=== PATIENT | female | born 1965 | race Caucasian/White ===

== ENCOUNTER → 2022-11-14 11:00 | Outpatient (BNVA) | payer OTHER, SELFPAY | PROVIDERS: PCP Internal Medicine; Visit Provider Nurse Practitioner Family ==

== ENCOUNTER 2022-12-18 13:23 | Inpatient (IN) | payer OTHER, SELFPAY ==
--- NOTE | ~2022-12-18 | CT_ITS ---
EXAMINATION: CT ABDOMEN AND PELVIS WITH CONTRAST CLINICAL INFORMATION: Cardiac silhouette yesterday with a red abbey on upper abdomen COMPARISON: Chest radiograph earlier today, MR lumbar spine 10/03/2021 TECHNIQUE: Multidetector volumetric images were obtained from the superior aspect of the liver through the pubic symphysis following administration 85 mL of Omnipaque 350 intravenous contrast. Sagittal and coronal reformatted images were obtained on the technologist's workstation. Oral contrast: No This CT examination was performed using dose optimization techniques as appropriate, variously including the following: *Automated exposure control *Adjustment of mA and/or kV according to patient size (this includes techniques or standardized protocols for targeted exams where dose is matched to indication/reason for exam; i.e. extremities or head) *Use of iterative reconstruction technique DLP: 1006 mGy-cm FINDINGS: LUNG BASES: Bibasilar atelectasis is present. The visualized lung bases are otherwise unremarkable. No rib fractures are seen. LIVER, GALLBLADDER, AND BILIARY TREE: The liver is mildly enlarged with decreased attenuation suggesting hepatic steatosis. No focal hepatic lesion or biliary ductal dilatation is present. The gallbladder is distended but otherwise unremarkable with no evidence of radiopaque gallstones, gallbladder wall thickening, or obvious pericholecystic inflammatory changes. PANCREAS: Unremarkable. SPLEEN: Unremarkable. ADRENAL GLANDS: Unremarkable. KIDNEYS AND URETERS: The kidneys are normal in size, shape, and attenuation. No hydronephrosis, hydroureter, or calculi seen. No perinephric stranding. BLADDER: Very distended up to the level of the umbilicus. GASTROINTESTINAL TRACT: The small and large bowel are unremarkable aside from a few scattered colonic diverticula without diverticulitis. The appendix is unremarkable. ABDOMINAL WALL: There are 2 periumbilical hernias present which contain only fat. LYMPH NODES: No retroperitoneal lymphadenopathy. VASCULAR: Unremarkable. PELVIC VISCERA: Unremarkable. OSSEOUS STRUCTURES: There is been posterior fixation with pedicular screws at L4-L5. There is grade 1 anterolisthesis of L4 upon L5. Marked degenerative changes are seen in the lower thoracic spine most marked at T9-T10. No acute traumatic fractures are seen. CT/CT abdomen pelvis w IV con IMPRESSION: 1. No evidence of an acute traumatic injury in the lower chest, abdomen or pelvis. 2. Incidental note made of mildly enlarged fatty liver, distended bladder and periumbilical hernias containing only fat. 3. Degenerative changes in the spine with grade 1 anterolisthesis of L4 upon L5 and posterior fixation L4-L5. Fleischner guidelines were followed.
--- NOTE | ~2022-12-18 | XR_ITS ---
EXAMINATION: XR CHEST CLINICAL INFORMATION: Overdose COMPARISON: May 2022. TECHNIQUE: Frontal apical lordotic projection and lateral view performed. FINDINGS: No distinct airspace consolidation or vascular congestion. There are numerous opacities superimposing the left upper chest which may be extraneous to the patient. Clinical correlation recommended. No distinct pleural effusions seen. Postsurgical changes noted at the cervical region. Trilevel thoracic spondylosis and degenerative disc space narrowing. XR/XR chest 2V IMPRESSION: No definite evidence for acute process; numerous opacities superimposing the upper left chest may be extraneous to the patient.
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
[2022-12-18 13:47] VITALS: BP 174/113; BP 181/115; PULSE 94; RESP 16; O2SAT 91; O2SAT 92; BMI 45.0
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
--- NOTE | 2022-12-18 14:13 | ECG_ITS ---
Test Reason : overdose Blood Pressure : / mmHG Vent. Rate : 089 BPM Atrial Rate : 089 BPM P-R Int : 170 ms QRS Dur : 084 ms QT Int : 390 ms P-R-T Axes : 033 -08 057 degrees QTc Int : 474 ms Normal sinus rhythm Moderate voltage criteria for LVH, may be normal variant ( R in aVL , Wilian product ) Nonspecific ST and T wave abnormality Prolonged QT Abnormal ECG No previous ECGs available Referred By: Elgin Cowan Electronically Signed By:COREY ORR MD
[2022-12-18] MEDS: 0.9 % Sodium Chloride 1,000 ML 999 ML IV ×4 (14:52→20:30)
[2022-12-18 14:59] LABS: MANUAL DIFF FLAG NO
[2022-12-18 15:01] LABS: Basophils Absolute Auto 0.1 X10*3/uL (0.0-0.2); Basophils Percent Auto 0.3 % (0-2); Eosinophils Percent Auto 0.1 % (0-4); Hematocrit 43.5 % (37.0-47.0); Hemoglobin 13.7 g/dl (12.0-16.0); Imm Gran Pct Auto 0.6 % (0.0-0.4); Lymphocytes Absolute Auto 1.2 X10*3/uL (1.2-4.9); Lymphocytes Percent Auto 6.7 % (20-40); Mean Corpuscular HGB Conc 31.5 g/dl (31.0-35.0); Mean Corpuscular Hemoglobin 26.4 pg (27.0-33.0); Mean Corpuscular Volume 83.8 fL (80.0-98.0); Mean Platelet Volume 9.3 fL (9.4-12.3); Monocytes Absolute Auto 1.1 X10*3/uL (0.1-1.2); Monocytes Percent Auto 6.4 % (2-11); Neutrophils Absolute Auto 15.1 x10*3/uL (2.0-8.3); Neutrophils Percent Auto 85.9 % (45-73); Platelet Count 346 X10*3/uL (160-400); Red Blood Count 5.19 X10*6/uL (4.20-5.50); Red Cell Distribution Width 14.9 % (11.0-16.0); White Blood Count 17.5 X10*3/uL (4.8-10.8)
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
[2022-12-18 15:15] LABS: IDNOW Serial# 9DB6401D
[2022-12-18 15:16] LABS: COVID-19 Test Negative (Negative)
[2022-12-18 15:17] LABS: Alanine Aminotransferase 117 U/L (0-31); Albumin Level 4.5 g/dL (3.5-5.0); Alkaline Phosphatase 219 U/L (39-117); Anion Gap 18 (12-20); Aspartate Amino Transferase 188 U/L (5-31); Bilirubin Direct 0.2 mg/dL (0.0-0.5); Bilirubin Total 0.6 mg/dL (0.0-1.0); Blood Urea Nitrogen 14 mg/dL (9-16); Calcium 10.5 mg/dL (8.4-10.2); Carbon Dioxide 32 mmol/L (22-29); Chloride 92 mmol/L (96-108); Creatinine Clr Calc Pharmacy 43.2; Estimated Glomerular Filt Rate 37; Glucose Random 117 mg/dL (60-115); Lipase 39 U/L (8-78); Potassium 3.5 mmol/L (3.3-5.1); Sodium 138 mmol/L (135-145); Total Protein 7.9 g/dL (6.5-8.0)
[2022-12-18 15:18] LABS: Lactic Acid 4.1 mmol/L (0.5-2.0)
[2022-12-18 16:00] VITALS: BP 202/116; PULSE 90; RESP 20; O2SAT 95
--- NOTE | 2022-12-18 16:16 | PHA.MEDREC ---
Pharmacy Consult ? Medication Reconciliation Pharmacy has completed the medication reconciliation. Spoke to patient to confirm meds.
--- NOTE | 2022-12-18 16:39 | PC.NURSE ---
pt is very difficult stick, two techs have attempted to draw blood cultures. awaiting BC draw before hanging ABX
[2022-12-18 17:00] LABS: Reflex Lactate? Lactic Acid Added
[2022-12-18] MEDS: Piperacillin Sodium/Tazobactam 4.5 GM in 0.9 % Sodium Chloride 100 ML IV (17:02)
[2022-12-18 17:25] LABS: Lactic Acid 3.1 mmol/L (0.5-2.0)
[2022-12-18] MEDS: iohexoL 350 MG/ML 100 ML INFUS..BTL IV (17:34)
[2022-12-18 17:37] VITALS: BP 201/109
[2022-12-18] MEDS: vancomycin/NS 2,000 MG/500 ML PLAST..BAG 250 MG IV (17:39)
[2022-12-18] MEDS: Ketorolac Tromethamine 15 MG/ML VIAL IVPUSH (17:42)
[2022-12-18 18:28] LABS: Appearance Urine Clear; Color Urine Yellow; Glucose Urine UA Negative (Negative); Leukocyte Esterase Urine Trace (Negative); Nitrite Urine Negative (Negative); PH 6.5 (5.0-9.0); UMIC TRIGGER UACC YES; Urine Blood Small (1+) (Negative); Urine Ketones Negative (Negative); Urine Protein 30 (1+) mg/dL (Neg-Trace)
[2022-12-18 18:39] LABS: Bacteria Urine 2+ (None Seen); Squamous Epithelial Cell Urine 0-2 /HPF (0-2); WBC Urine 0-5 /HPF (0-5)
[2022-12-18 18:40] LABS: Amphetamine Screen Urine Not Detected (Not Detect); Barbiturates, Urine POSITIVE (Not Detect); Benzodiazepines Screen Urine POSITIVE (Not Detect); Cannabinoid Screen Urine Not Detected (Not Detect); Cocaine Screen Urine Not Detected (Not Detect); Fentanyl, urine Not Detected (Not Detect); Opiate Screen Urine POSITIVE (Not Detect); Phencyclidine Screen Urine Not Detected (Not Detect)
[2022-12-18 19:03] LABS: Reflex Lactate? Lactic Acid Added
--- NOTE | 2022-12-18 20:30 | PC.NURSE ---
Hung fluid for pt, notified GIOVANY Mitchell
--- NOTE | 2022-12-18 20:39 | MHC.RECOVSUP ---
? Reason for consult:OPI o? Current location:[facility]? o? Identified substance use concern:? -? Overdose ? Intervention: o? Community resources provided ? Plan:PT being admitted ? Additional information: provided this pt with recovery resources as she is being admitted, also provided this pt with business card/ contact information.
[2022-12-18 20:50] LABS: MANUAL DIFF FLAG NO
[2022-12-18 20:51] LABS: Basophils Percent Auto 0.2 % (0-2); Eosinophils Percent Auto 0.1 % (0-4); Hematocrit 37.6 % (37.0-47.0); Hemoglobin 11.9 g/dl (12.0-16.0); Imm Gran Abs Auto 0.07 X10*3/uL (0.00-0.03); Imm Gran Pct Auto 0.5 % (0.0-0.4); Lymphocytes Absolute Auto 1.2 X10*3/uL (1.2-4.9); Lymphocytes Percent Auto 8.1 % (20-40); Mean Corpuscular HGB Conc 31.6 g/dl (31.0-35.0); Mean Corpuscular Hemoglobin 26.4 pg (27.0-33.0); Mean Corpuscular Volume 83.4 fL (80.0-98.0); Mean Platelet Volume 9.6 fL (9.4-12.3); Monocytes Absolute Auto 0.7 X10*3/uL (0.1-1.2); Monocytes Percent Auto 4.2 % (2-11); Neutrophils Absolute Auto 13.3 x10*3/uL (2.0-8.3); Neutrophils Percent Auto 86.9 % (45-73); Platelet Count 326 X10*3/uL (160-400); Red Blood Count 4.51 X10*6/uL (4.20-5.50); White Blood Count 15.3 X10*3/uL (4.8-10.8)
[2022-12-18 21:07] LABS: Alanine Aminotransferase 90 U/L (0-31); Albumin Level 3.8 g/dL (3.5-5.0); Alkaline Phosphatase 178 U/L (39-117); Anion Gap 19 (12-20); Aspartate Amino Transferase 118 U/L (5-31); Bilirubin Direct 0.2 mg/dL (0.0-0.5); Bilirubin Total 0.5 mg/dL (0.0-1.0); Blood Urea Nitrogen 11 mg/dL (9-16); Calcium 8.7 mg/dL (8.4-10.2); Carbon Dioxide 26 mmol/L (22-29); Chloride 98 mmol/L (96-108); Creatinine Clr Calc Pharmacy 56.8; Estimated Glomerular Filt Rate 51; Glucose Random 122 mg/dL (60-115); Potassium 3.7 mmol/L (3.3-5.1); Sodium 139 mmol/L (135-145); Total Protein 6.9 g/dL (6.5-8.0)
[2022-12-18 21:11] LABS: ~Lactic Acid-LAB USE ONLY 3.2 mmol/L (0.5-2.0)
--- NOTE | 2022-12-18 21:15 | PC.NURSE ---
dr Cowan aware of lactic acid 3.2
[2022-12-18 21:52] VITALS: BP 102/61; PULSE 78; RESP 16; TEMP 37; O2SAT 95
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
[2022-12-18 22:41] LABS: Reflex Lactate? 2 Y
[2022-12-18 23:12] VITALS: BP 107/69; PULSE 67; RESP 17; TEMP 38; O2SAT 96
[2022-12-18] MEDS: cefTRIAXone sodium 1 GM in 0.9 % Sodium Chloride 50 ML IV (23:32)
[2022-12-18] MEDS: Enoxaparin Sodium 40 MG/0.4 ML SYRINGE SUBCUT (23:33)
[2022-12-18 23:43] LABS: ~Lactic Acid-LAB USE ONLY 1.9 mmol/L (0.5-2.0)
[2022-12-18 23:47] VITALS: O2SAT 96
[2022-12-18 23:51] LABS: ABG Base Excess 5.9 mmol/L; ABG HCO3 31 mmol/L (22-26); ABG pCO2 51 mmHg (32-45); ABG pH 7.39 (7.35-7.45); ABG pO2 73 mmHg (83-108)
[2022-12-19] MEDS: Lactated Ringers 1,000 ML 100 ML IVCONT ×2 (00:03→10:53)
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
--- NOTE | 2022-12-19 05:10 | PC.NURSE ---
Pt sleeping at the bedside in no apparent distress. Breaths are even regular and unlabored with equal chest rises. Pending bed assignment. Will continue to monitor.
[2022-12-19 05:18] LABS: MANUAL DIFF FLAG NO
[2022-12-19 05:20] LABS: Basophils Percent Auto 0.2 % (0-2); Eosinophils Percent Auto 0.3 % (0-4); Hematocrit 34.3 % (37.0-47.0); Imm Gran Abs Auto 0.04 X10*3/uL (0.00-0.03); Imm Gran Pct Auto 0.3 % (0.0-0.4); Lymphocytes Absolute Auto 2.5 X10*3/uL (1.2-4.9); Lymphocytes Percent Auto 18.4 % (20-40); Mean Corpuscular HGB Conc 32.1 g/dl (31.0-35.0); Mean Corpuscular Hemoglobin 26.3 pg (27.0-33.0); Mean Corpuscular Volume 81.9 fL (80.0-98.0); Mean Platelet Volume 9.5 fL (9.4-12.3); Monocytes Percent Auto 7.8 % (2-11); Neutrophils Absolute Auto 9.8 x10*3/uL (2.0-8.3); Platelet Count 300 X10*3/uL (160-400); Red Blood Count 4.19 X10*6/uL (4.20-5.50); Red Cell Distribution Width 15.1 % (11.0-16.0); White Blood Count 13.4 X10*3/uL (4.8-10.8)
[2022-12-19 06:08] VITALS: BMI 44.5
[2022-12-19 06:15] LABS: Alanine Aminotransferase 69 U/L (0-31); Albumin Level 3.5 g/dL (3.5-5.0); Alkaline Phosphatase 149 U/L (39-117); Anion Gap 15 (12-20); Aspartate Amino Transferase 74 U/L (5-31); Bilirubin Direct 0.1 mg/dL (0.0-0.5); Bilirubin Total 0.4 mg/dL (0.0-1.0); Blood Urea Nitrogen 9 mg/dL (9-16); Calcium 9.2 mg/dL (8.4-10.2); Carbon Dioxide 26 mmol/L (22-29); Chloride 102 mmol/L (96-108); Creatinine Clr Calc Pharmacy 73.3; Estimated Glomerular Filt Rate > 60; Glucose Random 108 mg/dL (60-115); Potassium 3.3 mmol/L (3.3-5.1); Sodium 140 mmol/L (135-145); Total Protein 6.2 g/dL (6.5-8.0)
[2022-12-19 07:01] LABS: ABG Refer to POC result
[2022-12-19 07:44] VITALS: BP 131/82; PULSE 75; RESP 16; TEMP 36.5; O2SAT 95
[2022-12-19 08:00] VITALS: BP 162/93; PULSE 83; RESP 20; TEMP 36.3; O2SAT 95
--- NOTE | 2022-12-19 09:06 | MHC.CM.PN ---
KIRSTY 12/19, DCP: HOME NO SERVICES, [employer]AM HAS PROVIDED OUTPT RESOURCES, FOR TRANSPORT.
--- NOTE | 2022-12-19 09:08 | MHC.CM.PN ---
Addendum entered by Ketty Grady RN 12/19/22 10:31: PER HOSPITALIST PT WILL NEED TO BE CLEARED BY N CRISIS, IF CLEARED FOR HOME PT MAY D/C LATER TODAY. Original Note: KIRSTY 12/19/22, EMR REVIEWED, CM MET W/PT WHO REPORTS SHE LIVES W/, IS INDEPENDENT W/ALL CARE, DENIES USE OF DME/HOME SERVICES, PT REPORTS SHE DOES NOT HAVE A PSYCHIATRIST/THERAPIST AND HER PCP ORDERS ALL OF HER MEDICATIONS, RECOVERY TEAM HAS MET W/PT AND PROVIDED HER W/OUTPT RESOURCES, PT VERIFIES PCP IS JOSSELINE LOO VACC X1 HOWEVER DOES NOT RECALL WHICH TYPE AND HCP VERIFIED AAS ORLY AND COPY ON FILE. DCP: HOME NO SERVICES, [employer] TEAM HAS PROVIDED OUTPT RESOURCES, FOR TRANSPORT.
[2022-12-19 11:54] VITALS: BP 157/99; PULSE 89; RESP 20; TEMP 36.4; O2SAT 96
--- NOTE | 2022-12-19 14:48 | HO.SUDE ---
Met with pt in 487 after pt admitted to [facility] after accidental overdose. Pt laying in bed, awake, alert, restless, engages in conversation. Pt reports memory issues and at times has difficulty answering questions and finding words. Pt reports having been prescribed opioids on and off since 2015 for neck, back, knee pain. Pt reports recently restarting and needing knee surgery. Pt reports she is disabled and her helps with her medications. Pt reports yesterday was not home and pt accidentally took morphine believing it to be her thyroid medication. Pt reports this was first overdose and unintentional. Pt reports Narcan is in the home due to having opioids in the home. Pt denies using illicit pain medication. Pt educated on risks of overdose. Denies questions or concerns for t/w. Discussed with Kylie Seymour APRN.
[2022-12-19 15:13] VITALS: BP 192/96; PULSE 90; RESP 18; TEMP 36; O2SAT 97
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
[2022-12-19] MEDS: amLODIPine Besylate 5 MG TABLET PO (18:14)
[2022-12-19] MEDS: Triamterene/HCTZ 37.5/25 TABLET 1 TAB PO (18:14)
[2022-12-19 19:09] VITALS: BP 153/94
== END 2022-12-19 18:50 | disposition home or self-care (01) | DRG 812 ==
LOC: HO.ED 15:39 → HO.EDOVER 22:15 → HO.IMC 12-19 07:24
PROVIDERS: Physician Assistant; Admitting Provider Internal Medicine; Emergency Provider Student in an Organized Health Care Education/Training Program; PCP Internal Medicine; Visit Provider Internal Medicine
DX: T40.2X1A Poisoning by other opioids, accidental (unintentional), initial encounter (principal); N17.9 Acute kidney failure, unspecified; E87.20 Acidosis, unspecified; N39.0 Urinary tract infection, site not specified; E86.0 Dehydration; E03.9 Hypothyroidism, unspecified; G47.33 Obstructive sleep apnea (adult) (pediatric); Z79.51 Long term (current) use of inhaled steroids; Z79.890 Hormone replacement therapy; Z79.899 Other long term (current) drug therapy
CPT/HCPCS: 36415; 36600; 70450; 71046; 74177; 80048; 80053; 80076; 80307; 81001; 82248; 82803; 83605; 83690; 85025; 87040; 87635; 93005; 99285; J0696; J1650; J1885; J2543; J3370; Q9967

== ENCOUNTER → 2022-12-18 14:13 | Outpatient (BNV) | payer OTHER, SELFPAY | PROVIDERS: Admitting Provider Internal Medicine; Emergency Provider Student in an Organized Health Care Education/Training Program; PCP Internal Medicine; Visit Provider Internal Medicine Cardiovascular Disease | DX: I45.81 Long QT syndrome (principal) | CPT/HCPCS: 93010 ==

== ENCOUNTER → 2022-12-18 22:06 | Outpatient (BNV) | payer OTHER, SELFPAY | PROVIDERS: Admitting Provider Internal Medicine; Emergency Provider Student in an Organized Health Care Education/Training Program; PCP Internal Medicine; Visit Provider Internal Medicine | DX: E87.20 Acidosis, unspecified (principal); T50.901A Poisoning by unspecified drugs, medicaments and biological substances, accidental (unintentional), initial encounter; N39.0 Urinary tract infection, site not specified; R74.01 Elevation of levels of liver transaminase levels | CPT/HCPCS: 99222; 99236; 99239 ==

== ENCOUNTER 2023-01-28 15:11 | Outpatient (AMB) | payer OTHER, SELFPAY ==
--- NOTE | 2023-01-28 15:13 | A.OFFVIS_ITS ---
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 The patient is a 57 year old female who presents for preoperative evaluation for knee replacement. She has underlying history of asthma, PRASHANTH, COPD, former smoker with 20 pack year history, quit 15 years ago. Denies childhood asthma or need for hospitalization related to respiratory status. She has a paternal uncle who had lung cancer and brother with COPD.? Over the last few years reports progressively worsening dyspnea on exertion. She is regularly using Trelegy and rarely uses albuterol. She denies any recent exacerbations or respiratory illnesses. She denies any occupational exposures. 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 the patient did have a chest x-ray which were personally reviewed. She does have some nodular densities on her chest x-ray and will ultimately require CT scan to further follow up the abnormalities. From a respiratory status the patient is doing better on the current respiratory regimen. the patient appears to be significantly debilitated due to her orthopedic issue. Patient is awaiting a schedule for her total knee replacement at this time her respiratory status is stable she is doing better from a respiratory status I do believe that she should proceed with her surgery at this time. The patient does have moderate risk for perioperative pulmonary complications which include atelectasis, hypoxia, pneumonia and prolonged mechanical ventilation. At this point the patient is medically optimize and is able to proceed with surgery In anesthesia. Also to note the patient was evaluated by Sleep Medicine at [facility] and will be starting BiPAP with oxygen at nighttime this week. COUNTS INCLUDE 234 BEDS AT THE [facility] Medical History (Updated 01/28/23 @ 15:36 by Jerad Coronado MD) COPD (chronic obstructive pulmonary disease) Hepatitis Hypertension Hypothyroidism Obstructive sleep apnea Personal history of tobacco use Preop pulmonary/respiratory exam Social History Household Members: Spouse Housing: House Do you presently have visiting nurse or other home services: No Alcohol intake: current Alcohol intake frequency: holidays/special occasions only Patient Tobacco Use Status: Never used Tobacco Second Hand Smoke Exposure: No Advance Directives Date on File: 12/19/22 service: No Review of Systems Const Denies chills, Denies excessive sweating, Denies fever(s), Denies headache(s) and Denies night sweats Eyes Denies dry eyes, Denies irritation and Denies itchy eyes ENT Reports Normal hearing present, Denies headache(s), Denies nasal congestion, Denies nasal discharge, Denies post nasal drip and Denies sore throat Card Denies chest pain, Denies chest pain at rest, Denies chest pain with activity, Denies leg edema, Denies dyspnea, Denies orthopnea and Denies paroxysmal nocturnal dyspnea Resp Denies chest congestion, Denies excessive phlegm production, Denies pain on inspiration, Denies pain with cough, Denies dyspnea and Denies stridor Musc Denies myalgias Neuro Reports Normal hearing present and Denies headache(s) Endo Denies excessive sweating Lv/Lymph Denies lymphadenopathy Aller/Immun Denies itchy eyes and Denies seasonal rhinorrhea Physical Exam Vital Signs: Last Vital Signs Pulse 86 01/28/23 15:15 Pulse Ox 95 01/28/23 15:15 Oxygen Delivery Method Room Air 01/28/23 15:15 BMI result Body Mass Index 38.4 Const General: cooperative, comfortable, no acute distress, well developed and alert Nutritional Appearance: obese Orientation/consciousness: patient oriented x3 HEENT Head: Yes normal to inspection, Yes normocephalic and Yes atraumatic Ears: hearing grossly normal bilaterally and external ears normal Eyes General: appearance normal, both eyes and all related structures Eyelids: Yes eyelids normal Sclerae: sclerae normal EOM: EOMs intact bilaterally Neck Neck: Yes normal visual inspection and Yes no lymphadenopathy Lymphatic: no lymphadenopathy noted Chest Chest palpation & inspection: normal inspection of the chest Resp Effort & Inspection: normal respiratory effort, able to speak in complete sentences, no audible wheezes, no cough, no stridor, not tachypneic, no tripod positioning and no use of accessory muscles Auscultation: diminished lung sounds Cardio Rate: regular rate Rhythm: regular rhythm Skin Other: warm, dry General skin exam: no rashes or lesions noted Neuro General: patient oriented x3 Cranial nerves: Yes Normal hearing present Cognition (Neuro): normal cognition Extrem General: Yes normal to inspection, Yes capillary refill normal, Yes no clubbing, cyanosis or edema and Yes no pedal edema Psych Appearance: grossly normal Speech and movement: Normal speech and movement present and Clear speech present Affect: normal affect Attitude: cooperative Thought process: Normal thought process present Thought content: Normal thought content present Insight: Good insight present (Psych) Judgement: Good judgement present (Psych) Assessment & Plan Assessment & Plan (1) Preop pulmonary/respiratory exam: Code(s): Z01.811 - Encounter for preprocedural respiratory examination (2) COPD (chronic obstructive pulmonary disease): Code(s): J44.9 - Chronic obstructive pulmonary disease, unspecified (3) Dyspnea on exertion: Code(s): R06.09 - Other forms of dyspnea (4) Obstructive sleep apnea: Code(s): G47.33 - Obstructive sleep apnea (adult) (pediatric) Plan continue Trelegy oscar;y combivent respimet start BIPAP with nocturnal oxygen requesting CT chest The Patient is able to consent for orthopedic surgery and anesthesia at this time. The patient does have moderate risk for perioperative pulmonary complications which includes; atelectasis, hypoxia, pneumonia and prolonged mechanical ventilation. The patient at this point is medically optimize. She should be using her respiratory therapy. Also should be provided pre and post bronchodilator therapy. The patient should also be using her BiPAP and oxygen postoperatively while sleeping. f/u 3 months Orders: Orders CT chest wo IV con Today R93.89 - Abnormal findings on diagnostic imaging of other specified body structures Medications: New ipratropium-albuterol 20-100 mcg/actuation (Combivent Respimat) space evenly during waking hours 1 puff inhalation QID 30 days 4 grams 11RF Coding Level of Care Code Est Pt Level 4 (01134) Diagnoses Preop pulmonary/respiratory exam Z01.811 COPD (chronic obstructive pulmonary disease) J44.9 Dyspnea on exertion R06.09 Obstructive sleep apnea G47.33 Time Spent (min) 19
[2023-01-28 15:15] VITALS: PULSE 86; O2SAT 95; BMI 38.4
== END 2023-01-28 15:37 | disposition home or self-care (01) ==
PROVIDERS: PCP Internal Medicine; Visit Provider Hospitalist
DX: Z01.811 Encounter for preprocedural respiratory examination (principal); J44.9 Chronic obstructive pulmonary disease, unspecified; R06.09 Other forms of dyspnea; G47.33 Obstructive sleep apnea (adult) (pediatric)
CPT/HCPCS: 99214

== ENCOUNTER → 2023-01-28 15:11 | Outpatient (BNVA) | payer OTHER, SELFPAY | PROVIDERS: Visit Provider Hospitalist ==

== ENCOUNTER 2023-02-25 11:17 | Outpatient (REF) | payer OTHER, SELFPAY ==
--- NOTE | ~2023-02-25 | CT_ITS ---
EXAMINATION: CT CHEST WITHOUT CONTRAST CLINICAL INFORMATION: Follow-up abnormal chest x-ray COMPARISON: Chest x-ray December 2022 TECHNIQUE: Multidetector volumetric CT imaging of the chest was done. Axial MIP volume rendering provided. Sagittal and coronal reformatted images were obtained. This CT examination was performed using dose optimization techniques as appropriate, variously including the following: *Automated exposure control *Adjustment of mA and/or kV according to patient size (this includes techniques or standardized protocols for targeted exams where dose is matched to indication/reason for exam; i.e. extremities or head) *Use of iterative reconstruction technique DLP: 171 mGy-cm FINDINGS: LUNGS: Subsegmental atelectasis at the lung bases. MEDIASTINUM: The mediastinum is normal. CORONARY ARTERY CALCIFICATION: Mild PLEURA: There is no pleural effusion. No pleural mass or thickening. AXILLA: No lymphadenopathy. UPPER ABDOMEN: Fatty liver. OSSEOUS STRUCTURES: Left fifth and sixth anterior rib fractures.. Degenerative changes of the thoracic spine. Postsurgical changes to the lower cervical spine. CT/CT chest wo IV con IMPRESSION: No evidence for acute disease in the chest. Left fifth and sixth anterior rib fractures. Fleischner guidelines were followed.
== END 2023-02-25 11:18 | disposition home or self-care (01) ==
LOC: HO.CT 11:17
PROVIDERS: PCP Internal Medicine; Visit Provider Hospitalist
DX: R93.89 Abnormal findings on diagnostic imaging of other specified body structures (principal)
CPT/HCPCS: 71250